=== PATIENT | female | born 1955 | race Caucasian/White ===

== ENCOUNTER 2017-01-23 09:05 | Emergency (ER) | payer OTHER ==
[2017-01-23 09:46] LABS: BASOPHIL 1.1 % (0-2); EOSINOPHIL 3.9 % (0-5); HCT 42.5 % (37.0-47.0); HGB 14.9 g/dl (12.5-16.0); MCH 30.6 pg (25.0-31.0); MCHC 35.1 g/dL (32.0-36.0); MCV 87.3 fL (78.0-100.0); MONOCYTE 5.4 % (0-12); MPV 9.9 fL (6.0-9.5); NEUTROPHIL 71.6 % (41-80); PLT 279 K/uL (150-400); RBC 4.87 M/uL (4.20-5.40); RDW 12.8 % (11.5-14.0); WBC 10.3 K/uL (4.0-10.5)
[2017-01-23 09:47] LABS: BILIRUBIN NEGATIVE (NEGATIVE); BLOOD 3+ Ery/uL (NEGATIVE); COLOR YELLOW (YELLOW); GLUCOSE (U) NORMAL (NORMAL); KETONE (U) NEGATIVE (NEGATIVE); LEUKOCYTES NEGATIVE Leu/uL (NEGATIVE); NITRITE NEGATIVE (NEGATIVE); PROTEIN NEGATIVE (NEGATIVE); SPECIFIC GRAVITY >=1.030 (1.001-1.030); UROBILINOGEN 0.2 mg/dL (0.2-1.0); pH 5.5 (5.0-9.0)
[2017-01-23 09:48] LABS: CLARITY HAZY (CLEAR)
[2017-01-23 09:49] LABS: URINARY WBC RARE
[2017-01-23 09:50] LABS: AMORPHOUS URATES CRYSTALS TRACE; SQUAMOUS EPITHELIAL CELLS RARE; URINARY RBC 20-50
[2017-01-23 09:57] LABS: ALBUMIN 4.3 g/dL (3.5-5.0); BILIRUBIN - TOTAL 0.4 mg/dL (0.1-1.0); CREATININE 1.2 mg/dL (0.5-1.0); GLOBULIN (CALCULATION) 3.2 g/dL (2.2-4.2); POTASSIUM 3.8 mmol/L (3.5-5.1); TOTAL PROTEIN 7.5 g/dL (6.4-8.3)
== END 2017-01-23 12:07 | disposition home or self-care (01) ==
LOC: FER 09:05
PROVIDERS: Internal Medicine
DX: N13.2 Hydronephrosis with renal and ureteral calculous obstruction (principal); R11.2 Nausea with vomiting, unspecified; R91.8 Other nonspecific abnormal finding of lung field; J98.11 Atelectasis; I10 Essential (primary) hypertension; E78.5 Hyperlipidemia, unspecified; E03.9 Hypothyroidism, unspecified
CPT/HCPCS: 36415; 80053; 81001; 85025; J1885